=== PATIENT | female | born 1965 | race Caucasian/White ===

== ENCOUNTER 2019-12-25 16:25 | Emergency (ER) | payer BC ==
--- NOTE | 2019-12-25 17:24 | TELE ---
HPI Do you have fever,cough or shortness of breath?: No - General Reason For Visit: COVID TESTING Past History - Travel History Traveled outside of the country in the last 30 days: No Close contact w/someone who was outside of country & ill: No Review of Systems - Review of Systems Able to Perform ROS?: Yes Comments:: 12/25/19 17:23 CONSTITUTIONAL: Absent: fever, chills, diaphoresis, generalized weakness, malaise, loss of appetite HEENT: Absent: rhinorrhea, nasal congestion, throat pain, throat swelling, difficulty swallowing, mouth swelling, ear pain, eye pain, visual Changes CARDIOVASCULAR: Absent: chest pain, loss of consciousness, palpitations, irregular heart rate, peripheral edema RESPIRATORY: Absent: cough, shortness of breath, dyspnea with exertion, orthopnea, wheezing, stridor, hemoptysis GASTROINTESTINAL: Absent: abdominal pain, abdominal distension, nausea, vomiting, diarrhea, constipation, melena, hematochezia SKIN: Absent: rash, itching, pallor NEUROLOGIC: Absent: headache, focal weakness or paresthesias, dizziness, unsteady gait, seizure, mental status changes, bladder or bowel incontinence PSYCHIATRIC: Absent: anxiety, depression, suicidal or homicidal ideation, hallucinations. Limited Faroese proficient: No *Physical Exam - Physical Exam 12/25/19 17:23 GENERAL: Well developed, well nourished. Awake and alert. No acute distress. HEENT: Normocephalic, atraumatic. PERRLA, EOMI. NECK: Supple. Full ROM. PULMONARY: No evidence of respiratory distress. EXTREMITIES: No cyanosis. SKIN: Warm and dry. Normal capillary refill. No rashes. No jaundice. NEUROLOGICAL: Alert, awake, appropriate. PSYCHIATRIC: Cooperative. Good eye contact. Appropriate mood and affect. - Medical Decision Making 12/25/19 17:24 The patient is a 54-year-old female who presents to virtual urgent care for COVID testing. She states that her son had an exposure at school and would like to be tested. She is currently in her normal state of health. A/P: Need for COVID swab Patient in no distress on telehealth visit COVID swab ordered. Patient is already at the [facility]. Isolation precautions given. Discharge Diagnosis at time of Disposition: Counseled about COVID-19 virus infection - Referrals Follow-up Referral(s): Bernard Padilla MD [Primary Care Provider] - - Patient Instructions
== END 2019-12-25 17:24 | disposition home or self-care (01) ==
LOC: JVIRT 16:25
DX: Z11.59 Encounter for screening for other viral diseases (principal)
CPT/HCPCS: Q3014-GT; U0003

== ENCOUNTER 2020-02-26 14:35 | Emergency (ER) | payer BC ==
[2020-02-26 14:54] VITALS: TEMP 98.1; BMI 30.7
[2020-02-26] MEDS ORDERED: morphine CARPU-JECT 4 MG/1 ML DISP.SYRIN IVPUSH ONE (15:07)
[2020-02-26] MEDS ORDERED: morphine SULFATE 4 MG/ML VIAL ONE (15:17)
[2020-02-26] MEDS ORDERED: MORPHINE SULFATE 2 MG/ML VIAL ONE (15:17)
[2020-02-26 19:58] VITALS: BP 135/80; PULSE 99
== END 2020-02-26 20:05 | disposition home or self-care (01) ==
LOC: JER 14:35
PROC: 3E033NZ Introduction of Analgesics, Hypnotics, Sedatives into Peripheral Vein, Percutaneous Approach (ICD-10-PCS; principal; 2020-02-26)
DX: S82.892A Other fracture of left lower leg, initial encounter for closed fracture (principal)
CPT/HCPCS: 73562-TC-LT-FY; 73590-TC-LT-FY; 73610-TC-LT-FY; 73630-TC-LT; 99285-25

== ENCOUNTER 2020-03-10 06:14 | Day surgery (SDC) | payer BC ==
[2020-03-08 11:35] VITALS: BMI 29.9
[2020-03-10] MEDS ORDERED: BUPIVACAINE HCL/PF 0.5% (5MG/ML) 10 ML VIAL ONE (06:57)
[2020-03-10] MEDS ORDERED: ROPIVACAINE HCL 0.5% 30ML VIAL ONE (06:58)
[2020-03-10] MEDS ORDERED: MIDAZOLAM HCL 2 MG/2 ML SINGLE DOSE VIAL ONE ×3 (06:58→10:17)
[2020-03-10] MEDS ORDERED: KETOROLAC TROMETHAMINE 30 MG/1 ML VIAL ONE (07:01)
[2020-03-10] MEDS ORDERED: DEXAMETHASONE SOD PHOSPHATE 4 MG/1 ML VIAL ONE (07:01)
[2020-03-10] MEDS ORDERED: SUCCINYLCHOLINE CHLORIDE 200 MG/10 ML SYRINGE ONE (07:02)
[2020-03-10] MEDS ORDERED: PROPOFOL 20 ML ONE ×4 (07:02→08:06)
[2020-03-10] MEDS ORDERED: LIDOCAINE HCL/PF 2% SDV 5ML VIAL ONE (07:03)
[2020-03-10] MEDS ORDERED: oxyCODONE HCL 5 MG TABLET PO PRN ×2 (07:10)
[2020-03-10] MEDS ORDERED: ONDANSETRON 4 MG/2 ML VIAL IVPUSH PRN (07:10)
[2020-03-10] MEDS ORDERED: LACTATED RINGERS SOLUTION 1,000 ML IV SCH (07:15)
[2020-03-10] MEDS ORDERED: SODIUM CHLORIDE 0.9% P/F 10 ML VIAL IJ ONE (08:16)
[2020-03-10] MEDS ORDERED: ceFAZolin SODIUM 1 GM VIAL ONE (08:16)
[2020-03-10] MEDS ORDERED: TRANEXAMIC ACID 1000 MG/10 ML VIAL ONE (08:22)
[2020-03-10] MEDS ORDERED: ePHEDrine SULFATE 50 MG/1 ML AMPULE ONE (09:19)
[2020-03-10] MEDS ORDERED: PHENYLEPHRINE HCL 10 MG/1 ML SINGLE DOSE VIAL ONE (10:14)
[2020-03-10 12:05] VITALS: TEMP 97.9
[2020-03-10 12:59] VITALS: PULSE 86
[2020-03-10 13:55] VITALS: BP 118/76
== END 2020-03-10 14:15 | disposition home or self-care (01) ==
LOC: FASU 06:14
PROVIDERS: ATTEND Orthopaedic Surgery Sports Medicine
PROC: 0QSJ04Z Reposition Right Fibula with Internal Fixation Device, Open Approach (ICD-10-PCS; 2020-03-10)
PROC: 0SSG0ZZ Reposition Left Ankle Joint, Open Approach (ICD-10-PCS; 2020-03-10)
PROC: 0QSK04Z Reposition Left Fibula with Internal Fixation Device, Open Approach (ICD-10-PCS; principal; 2020-03-10 08:23)
DX: S82.852A Displaced trimalleolar fracture of left lower leg, initial encounter for closed fracture (principal); X58.XXXA Exposure to other specified factors, initial encounter; Y93.9 Activity, unspecified; Y92.9 Unspecified place or not applicable; S93.432A Sprain of tibiofibular ligament of left ankle, initial encounter
CPT/HCPCS: 27822; 27829; C1713; 73610-TC-LT-FY; 81025; 94760

== ENCOUNTER 2023-10-09 07:57 | Day surgery (SDC) | payer BC ==
[2023-10-07 12:26] VITALS: BMI 31.9
[2023-10-09 09:12] VITALS: TEMP 97.8
[2023-10-09 09:28] VITALS: BP 104/72; PULSE 71; RESP 19
== END 2023-10-09 09:29 | disposition home or self-care (01) ==
LOC: FASU-ENDO 07:57
PROVIDERS: ATTEND Internal Medicine Gastroenterology
PROC: 0DJD8ZZ Inspection of Lower Intestinal Tract, Via Natural or Artificial Opening Endoscopic (ICD-10-PCS; principal; 2023-10-09 08:43)
DX: Z12.11 Encounter for screening for malignant neoplasm of colon (principal); K57.30 Diverticulosis of large intestine without perforation or abscess without bleeding; Z86.010 Personal history of colon polyps; Z80.0 Family history of malignant neoplasm of digestive organs